=== PATIENT | female | born 1950 | race African-American/Black ===

== ENCOUNTER → 2017-02-10 | Outpatient (CLI) | payer BC ==
--- NOTE | 2017-02-10 17:53 | PCVCIMAG ---
APPROVED REPORT Study performed: 02/10/2017 13:12:19 EXAM: Comprehensive 2D, Doppler, and color-flow Echocardiogram Patient Location: Echo lab Room #: 2Status: routine BSA: 1.68 HR: 63 bpmBP: 126/82 mmHg Rhythm: NSR Other Information Study Quality: Good Risk Factors: Cardiac Risk Factors: Hyperlipidemia, HTN Indications Dyspnea Hypertension/HDD HX: SVT 2D Dimensions LVEF(%): 64.86 (>50%) IVSd: 6.43 (7-11mm)LVOT Diam: 20.66 (18-24mm) LVDd: 47.21 mm PWd: 8.35 (7-11mm)Ascending Ao: 28.74 (22-36mm) LVDs: 30.46 (25-40mm) Left Atrium: 28.64 (27-40mm) Aortic Root: 23.70 mm LV Single Plane 4CH: 61.39 % LV Single Plane 2CH: 71.81 %Hardin's LVEF: 66.60 % Biplane EF: 67.6 % Volumes Left Atrial Volume (Systole) Single Plane 4CH: 36.62 mLSingle Plane 2CH: 40.38 mL Biplane LA Volume: 40.00 mLLA ESV Index: 24.00 mL/m2 Aortic Valve AoV Peak Tone.: 1.05 m/s AO Peak Gr.: 4.41 mmHgLVOT Max P.04 mmHg LVOT Max V: 0.87 m/s MERARY Vmax: 2.78 cm2 Mitral Valve E/A Ratio: 1.2 MV Decel. Time: 173.32 ms MV E Max Tone.: 0.83 m/s MV A Tone.: 0.71 m/s IVRT: 93.43 ms TDI E/Lateral E': 9.22E/Medial E': 9.22 Medial E' Tone.: 0.09 m/s Lateral E' Tone.: 0.09 m/s Pulmonary Valve PV Peak Tone.: 0.96 m/sPV Peak Gr.: 3.72 mmHg Pulmonary Vein P Vein S: 0.40 m/sP Vein A: 0.36 m/s P Vein D: 0.24 m/sP Vein A Dur.: 103.8 msec P Vein S/D Ratio: 1.67 Tricuspid Valve TR Peak Tone.: 2.20 m/s TR Peak Gr.: 19.39 mmHg TV Vmax: 0.47 m/sPA Pressure: 26.00 mmHg Left Ventricle The left ventricle is normal size. There is normal LV segmental wall motion. There is normal left ventricular wall thickness. Left ventricular systolic function is normal. The left ventricular ejection fraction is within the normal range. LVEF is 65-70%. The left ventricular diastolic function is normal. Right Ventricle The right ventricle is normal size. The right ventricular systolic function is normal. Atria The left atrium size is normal. The right atrium size is normal. Aortic Valve Aortic valve is trileaflet. Aortic valve leaflets are minimally sclerotic but open well. No aortic regurgitation is present. There is no aortic valvular stenosis. Mitral Valve The mitral valve is normal in structure. Mild mitral regurgitation. No evidence of mitral valve stenosis. Tricuspid Valve The tricuspid valve is normal in structure. Trace to mild tricuspid regurgitation with a PA pressure of 26 mmHg. Pulmonic Valve The pulmonary valve is normal in structure. There is no pulmonic valvular regurgitation. Great Vessels The aortic root is normal in size. The ascending aorta is normal in size. IVC is normal in size and collapses with >50% inspiration Pericardium There is no pericardial effusion. There is no pleural effusion. <Conclusion> The left ventricle is normal size. LVEF is 65-70%. The left ventricular diastolic function is normal. The right ventricle is normal size. The left atrium size is normal. Aortic valve is trileaflet. Aortic valve leaflets are minimally sclerotic but open well. There is no aortic valvular stenosis. Mild mitral regurgitation. Trace to mild tricuspid regurgitation with a PA pressure of 26 mmHg. There is no pericardial effusion.
== END | disposition home or self-care (01) ==
LOC: PCVCIMAG 13:19
PROVIDERS: ATTEND Internal Medicine Cardiovascular Disease
DX: I10 Essential (primary) hypertension (principal); E78.5 Hyperlipidemia, unspecified; R06.09 Other forms of dyspnea; R00.2 Palpitations; Z79.899 Other long term (current) drug therapy
CPT/HCPCS: 80061; 93005; 93306